=== PATIENT | male | born 1940 | race Caucasian/White ===

== ENCOUNTER 2019-02-28 16:42 | Emergency (ER) | payer SELFPAY ==
[2019-02-28 16:55] VITALS: BP 159/82; PULSE 57; RESP 16; TEMP 36.5; O2SAT 99; BMI 27.9
--- NOTE | 2019-02-28 16:58 | PC.NURSE ---
Patient was the source patient of an exposure of needle stick at [facility]. Patient was asked to come to ER to provide blood for exposure panel. Patient has no complaints
--- NOTE | 2019-02-28 17:00 | PC.NURSE ---
Patient presents to the ER to provide blood work for a needle stick that took place at [facility]. 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 Patient has no complaints.
[2019-02-28 17:41] LABS: Alanine Aminotransferase 27 IU/L (21-72)
[2019-02-28 18:21] LABS: Hepatitis B Surface Antigen NEGATIVE s/c (NEGATIVE)
[2019-02-28 18:38] LABS: HIV 1 and 2 Antibody NEGATIVE (NEGATIVE)
--- NOTE | 2019-02-28 18:43 | ED_ITS ---
HPI - General Adult <JOCELIN May - Last Filed: 02/28/19 18:43> General Chief complaint: Blood/Body fluid exposure Stated complaint: BLOODWORK FOR NEEDLE STICK EARLIER Time Seen by Provider: 02/28/19 16:52 Source: patient Mode of arrival: ambulatory Limitations: no limitations History of Present Illness HPI narrative: The patient is a 78-year-old male with history of hypertension with a chief complaint of needing lab work. States he was at a clinic today, and a healthcare provider with stuck with a needle after drawing his blood. He states that the health care provider was exposed with blood. He denies any history of IV drug use, hepatitis or HIV. Related Data Home Medications Medication Instructions Recorded Confirmed aspirin 81 mg PO DAILY #0 04/25/11 cholecalciferol (vitamin D3) 1,000 unit PO DAILY #0 04/25/11 [Vitamin D3] amlodipine 10 mg PO DAILY 02/28/19 02/28/19 cyanocobalamin (vitamin B-12) See Rx Instructions .ROUTE .COMPLEX 02/28/19 02/28/19 doxycycline hyclate 50 mg PO DAILY 02/28/19 02/28/19 gabapentin 300 mg PO BEDTIME 02/28/19 02/28/19 insulin glargine [Basaglar KwikPen 02/28/19 U-100 Insulin] lisinopril 40 mg PO DAILY 02/28/19 02/28/19 metformin 1,000 mg PO BID 02/28/19 02/28/19 rosuvastatin 10 mg PO DAILY 02/28/19 02/28/19 sitagliptin [Januvia] 100 mg PO DAILY 02/28/19 02/28/19 Allergies Allergy/AdvReac Type Severity Reaction Status Date / Time none Allergy Unknown Uncoded 12/20/17 12:02 Review of Systems <JOCELIN May - Last Filed: 02/28/19 18:43> Review of Systems GENERAL: Denies chills, fatigue, malaise, fever, sweats. HEENT: Denies sinus pain, ear pain, sore throat, difficulty swallowing, dizziness. RESPIRATORY: Denies dyspnea, cough, wheezing, hemoptysis, sputum. CARDIOVASCULAR: Denies chest pain, palpitations, orthopnea, edema, GASTROINTESTINAL: Denies nausea, vomiting, abdominal pain, diarrhea, constipation, melena. : Denies dysuria, frequency, incontinence, hematuria, urinary retention. MUSCULOSKELETAL: denies weakness, joint pain, or bony pain SKIN: See HPI NEUROLOGIC: Denies weakness, headache, numbness, change in speech, confusion, seizures, incoordination. PSYCHIATRIC: No concerning psychosocial issues. 12 point review of systems is negative except for those stated above PFSH <JOCELIN May - Last Filed: 02/28/19 18:43> Social History Smoking Status: Never smoker Social History Smoking Status: Never smoker Exam <JOCELIN May - Last Filed: 02/28/19 18:43> Narrative Exam Narrative: GENERAL: This is a well-nourished, well-developed patient, in no acute distress HEAD: Atraumatic. Normocephalic. No temporal or scalp tenderness. EYES: Pupils equal round and reactive. Extraocular motions intact. No scleral icterus. No injection or drainage. ENT: Nose without bleeding. Airway patent RESPIRATORY: No cough. No increased respiratory effort. No accessory muscle use. EXTREMITIES: No clubbing, cyanosis, or edema. No joint tenderness, effusion, or edema noted. BACK: Nontender without deformity or crepitance. No flank tenderness. NEURO: AOx3. SKIN: No rash or erythema. Initial Vital Signs Initial Vital Signs: Vital Signs Temperature 97.7 F 02/28/19 16:55 Pulse Rate 57 L 02/28/19 16:55 Respiratory Rate 16 02/28/19 16:55 Blood Pressure 159/82 H 02/28/19 16:55 Pulse Oximetry 99 02/28/19 16:55 <Rhiannon Baker DO - Last Filed: 02/28/19 19:02> Initial Vital Signs Initial Vital Signs: Vital Signs Temperature 97.7 F 02/28/19 16:55 Pulse Rate 57 L 02/28/19 16:55 Respiratory Rate 16 02/28/19 16:55 Blood Pressure 159/82 H 02/28/19 16:55 Pulse Oximetry 99 02/28/19 16:55 Course <JOCELIN May - Last Filed: 02/28/19 18:43> Vital Signs - 8 hr 02/28/19 16:55 Temperature 97.7 F Pulse Rate 57 L Respiratory Rate 16 Blood Pressure 159/82 H Pulse Oximetry 99 <Rhiannon BakerDO - Last Filed: 02/28/19 19:02> Vital Signs - 8 hr 02/28/19 16:55 Temperature 97.7 F Pulse Rate 57 L Respiratory Rate 16 Blood Pressure 159/82 H Pulse Oximetry 99 Medical Decision Making <Rhiannon Reed LENGTH CONTROL TESTER-BC - Last Filed: 02/28/19 18:43> Lab Data Lab Results 02/28/19 02/28/19 Range/Units 17:24 17:24 ALT 27 (21-72) IU/L Hep Bs Antigen Negative (NEGATIVE) s/c HIV 1&2 Antibody Negative (NEGATIVE) MDM Narrative Medical decision making narrative: The patient is a 78-year-old male who presents requesting lab work as a healthcare provider was exposed to his blood. This occurred at a local clinic. An exposure panel was drawn. The patient requested to leave before his results came back. I am okay with this. I discussed following up with his PCP. Expressed appreciation for the patient being willing to come in to have lab work drawn. <Rhiannon TuckerDO magdaleno - Last Filed: 02/28/19 19:02> Lab Data Lab Results 02/28/19 02/28/19 Range/Units 17:24 17:24 ALT 27 (21-72) IU/L Hep Bs Antigen Negative (NEGATIVE) s/c HIV 1&2 Antibody Negative (NEGATIVE) Discharge Plan Departure Patient Disposition: Home Clinical Impression: Routine lab draw Discharge Date/Time: 02/28/19 17:40 Interventions: ED Discharge Assessment Last Done: 02/28/19 17:40 Instructions: DI for Accidental Exposure to Body Fluids Activity Restrictions/Additional Instructions: Thank you for coming in to get your blood work done today. Your blood work will be available by your PCP or medical records. Please feel free to come back to the emergency department for any acute concerns Prescriptions: No Action aspirin 81 MG tablet,delayed release (DR/EC) 81 mg PO DAILY Qty: 0 RF: 0 cholecalciferol (vitamin D3) [Vitamin D3] 1,000 unit Capsule 1,000 unit PO DAILY Qty: 0 RF: 0 doxycycline hyclate 50 mg capsule 50 mg PO DAILY RF: 0 amlodipine 10 mg tablet 10 mg PO DAILY RF: 0 cyanocobalamin (vitamin B-12) 1,000 mcg/mL solution See Rx Instructions .ROUTE .COMPLEX RF: 0 metformin 1,000 mg tablet 1,000 mg PO BID RF: 0 gabapentin 300 mg capsule 300 mg PO BEDTIME RF: 0 lisinopril 40 mg tablet 40 mg PO DAILY RF: 0 rosuvastatin 10 mg tablet 10 mg PO DAILY RF: 0 Januvia 100 mg tablet 100 mg PO DAILY RF: 0 Basaglar KwikPen U-100 Insulin 100 unit/mL (3 mL) insulin pen RF: 0 Referrals: Caity Wiseman MD [Primary Care Provider] - <Rhiannon Baker DO - Last Filed: 02/28/19 19:02> Cosign ED Attending Cosignature Attestation: I was immediately available in the department for consultation. This documentation has been reviewed and I agree with assessment and plan. Supervised by Rhiannon Baker DO
[2019-02-28 20:31] LABS: Hep C Virus Ab w/Reflex Quant NEGATIVE s/c (NEGATIVE)
[2019-03-02 17:23] LABS: Hepatitis B Surf Ab Qualitativ Reactive (Nonreactive)
== END 2019-02-28 17:40 | disposition home or self-care (01) ==
PROVIDERS: Emergency Provider Nurse Practitioner Family; Family Provider Internal Medicine; PCP Internal Medicine
DX: Z01.89 Encounter for other specified special examinations (principal)
CPT/HCPCS: 36415; 84460; 86703; 86706; 86803; 87340; 99282

== ENCOUNTER → 2019-04-09 11:04 | Outpatient (CLI) | payer MEDICARE, OTHER, SELFPAY ==
[2019-04-11 19:37] LABS: Intrinsic Factor Blocking Aby NEGATIVE
== END ==
PROVIDERS: PCP Internal Medicine; Visit Provider Internal Medicine
DX: E53.8 Deficiency of other specified B group vitamins (principal)
CPT/HCPCS: 36415; 86340

== ENCOUNTER → 2019-06-03 10:55 | Outpatient (CLI) | payer MEDICARE, OTHER, SELFPAY ==
[2019-06-03 13:39] LABS: Alanine Aminotransferase 33 IU/L (21-72); Albumin 4.7 g/dL (3.5-5.0); Albumin Globulin Ratio 1.6 (1.0-2.8); Alkaline Phosphatase 54 U/L (38-126); Aspartate Aminotransferase 38 IU/L (17-59); BUN Creatinine Ratio 21.4 (6-22); Bilirubin Total 1.5 mg/dL (0.2-1.3); Blood Urea Nitrogen 30 mg/dL (9-20); Calcium 10.9 mg/dL (8.4-10.2); Carbon Dioxide 25 mmol/L (22-32); Chloride 103 mmol/L (98-107); Cholesterol 121 mg/dL (140-199); Estimated Glomerular Filt Rate 48.8 mL/min (>60); Glucose 147 mg/dL (80-110); HDL Cholesterol 48 mg/dL (40-60); HEMOLYSIS < 15 (0-50); LDL Cholesterol Calculated 21 mg/dL (<100); Sodium 142 mmol/L (137-145); Total Protein 7.7 g/dL (6.3-8.2); Triglycerides 259 mg/dL (35-150)
[2019-06-03 13:48] LABS: Potassium 5.4 mmol/L (3.4-5.1)
== END ==
PROVIDERS: PCP Internal Medicine; Visit Provider Internal Medicine
DX: E11.9 Type 2 diabetes mellitus without complications (principal); I10 Essential (primary) hypertension; E78.2 Mixed hyperlipidemia
CPT/HCPCS: 36415; 80053; 80061

== ENCOUNTER → 2019-06-04 14:33 | Outpatient (CLI) | payer MEDICARE, OTHER, SELFPAY ==
--- NOTE | 2019-06-04 | DI.RAD.S_ITS ---
PROCEDURE: XR CHEST 2V INDICATIONS: HYPERCALCEMIA/KNOWN MGUS/R/O PULMONARY PATHOLOGY TECHNIQUE: 2 views of the chest were acquired. COMPARISON: None. FINDINGS: Surgical changes and devices: None. Lungs and pleura: Lungs are clear. Nodular densities in lower lobes, one on each side, are compatible with nipple shadows. No pleural effusions or pneumothorax. Mediastinum: Mediastinal contours are normal. Heart size is normal. Bones and chest wall: No suspicious bony abnormalities. Soft tissues appear unremarkable. IMPRESSION: No acute cardiopulmonary disease. Dictated by: Eva Palm M.D. on 06/04/2019 at 17:13 Approved by: Eva Palm M.D. on 06/04/2019 at 17:14
[2019-06-04 15:45] LABS: Add Manual Diff / Slide Review NO; Basophils Absolute Auto 0 /uL (0-100); Basophils Percent Auto 0.4 % (0-2); Eosinophils Absolute Auto 200 /uL (0-450); Eosinophils Percent Auto 2.1 % (2-4); Hematocrit 40.6 % (41-53); Hemoglobin 13.6 g/dL (13.5-17.5); Lymphocytes Absolute Auto 1200 /uL (1100-4500); Lymphocytes Percent Auto 15.7 % (25-40); Mean Corpuscular HGB Conc 33.4 % (30-36); Mean Corpuscular Hemoglobin 27.7 PG (26-34); Monocytes Absolute Auto 800 /uL (0-900); Monocytes Percent Auto 9.9 % (3-14); Neutrophils Absolute Auto 5700 /uL (1500-7000); Neutrophils Percent Auto 71.9 % (50-75); Platelet Count 210 X10^3/uL (150-400); Red Blood Cell Count 4.89 X10^6/uL (4.5-5.9); Red Cell Distribution Width 14.5 % (11.6-14.8); White Blood Cell Count 7.9 X10^3/uL (4.5-11.0)
[2019-06-04 16:23] LABS: Albumin 4.7 g/dL (3.5-5.0); Blood Urea Nitrogen 28 mg/dL (9-20); Calcium 10.5 mg/dL (8.4-10.2); Carbon Dioxide 24 mmol/L (22-32); Chloride 105 mmol/L (98-107); Estimated Glomerular Filt Rate 48.8 mL/min (>60); Glucose 119 mg/dL (80-110); HEMOLYSIS < 15 (0-50); Magnesium 1.7 mg/dL (1.6-2.3); Potassium 4.7 mmol/L (3.4-5.1); Sodium 141 mmol/L (137-145)
[2019-06-06 13:54] LABS: Free Kappa Light Chain 63.4 mg/L (3.3-19.4); Free Kappa/ Lambda Ratio 2.66 (0.26-1.65); Free Lambda 23.8 mg/L (5.7-26.3)
[2019-06-06 15:19] LABS: Ionized Calcium 5.4 mg/dL (4.8-5.6)
[2019-06-07 23:19] LABS: Albumin 4.3 g/dL (3.8-4.8); Alpha 1 Globulin 0.3 g/dL (0.2-0.3); Alpha 2 Globulin 0.9 g/dL (0.5-0.9); Beta 1 Globulin 0.5 g/dL (0.4-0.6); Gamma Globulin 0.9 g/dL (0.8-1.7); Protein, Total 7.3 g/dL (6.1-8.1)
== END ==
PROVIDERS: Visit Provider Internal Medicine
DX: N18.3 Chronic kidney disease, stage 3 (moderate) (principal)
CPT/HCPCS: 36415; 71046; 80048; 82040; 82330; 83735; 83883; 84155; 84165; 85025

== ENCOUNTER → 2019-06-07 09:49 | Outpatient (CLI) | payer MEDICARE, OTHER, SELFPAY ==
[2019-06-09 15:40] LABS: Calcium 24 Hour Urine 84 mg/day (100-300); Calcium Urine Random 5.1; Collection Time Urine 24 Hours; Total Volume Urine 1650 mL
== END ==
PROVIDERS: Visit Provider Internal Medicine
DX: E83.52 Hypercalcemia (principal)
CPT/HCPCS: 82340

== ENCOUNTER → 2020-01-03 10:08 | Outpatient (CLI) | payer MEDICARE, SELFPAY ==
[2020-01-03 11:58] LABS: Add Manual Diff / Slide Review NO; Basophils Absolute Auto 0 /uL (0-100); Basophils Percent Auto 0.7 % (0-2); Eosinophils Absolute Auto 200 /uL (0-450); Eosinophils Percent Auto 3.4 % (2-4); Hematocrit 40.1 % (41-53); Hemoglobin 13.5 g/dL (13.5-17.5); Lymphocytes Absolute Auto 1100 /uL (1100-4500); Lymphocytes Percent Auto 15.4 % (25-40); Mean Corpuscular HGB Conc 33.7 % (30-36); Mean Corpuscular Hemoglobin 28.3 PG (26-34); Mean Corpuscular Volume 83.7 fL (80-100); Monocytes Absolute Auto 800 /uL (0-900); Monocytes Percent Auto 10.7 % (3-14); Neutrophils Absolute Auto 5000 /uL (1500-7000); Neutrophils Percent Auto 69.8 % (50-75); Platelet Count 220 X10^3/uL (150-400); Red Blood Cell Count 4.79 X10^6/uL (4.5-5.9); Red Cell Distribution Width 14.5 % (11.6-14.8); White Blood Cell Count 7.2 X10^3/uL (4.5-11.0)
[2020-01-03 12:05] LABS: Hemoglobin A1C% w Est Avg Glu 6.7 % (4.0-6.0)
[2020-01-03 12:21] LABS: Alanine Aminotransferase 37 IU/L (<50); Albumin Globulin Ratio 1.5 (1.0-2.8); Alkaline Phosphatase 56 U/L (38-126); Aspartate Aminotransferase 42 IU/L (17-59); BUN Creatinine Ratio 15.2 (6-22); Bilirubin Total 1.8 mg/dL (0.2-1.3); Blood Urea Nitrogen 26 mg/dL (9-20); Calcium 10.6 mg/dL (8.4-10.2); Carbon Dioxide 23 mmol/L (22-32); Chloride 105 mmol/L (98-107); Cholesterol 150 mg/dL (140-199); Estimated Glomerular Filt Rate 38.7 mL/min (>60); Globulin 3.4 g/dL (1.7-4.1); Glucose 192 mg/dL (80-110); HDL Cholesterol 45 mg/dL (40-60); HEMOLYSIS < 15 (0-50); LDL Cholesterol Calculated 50 mg/dL (<100); Potassium 4.7 mmol/L (3.4-5.1); Sodium 141 mmol/L (137-145); Total Protein 8.4 g/dL (6.3-8.2); Triglycerides 273 mg/dL (35-150)
[2020-01-03 13:05] LABS: Vitamin B12 467 pg/mL (239-931)
[2020-01-03 16:53] LABS: Creatinine Urine Random 255.6 mg/dL
[2020-01-03 17:40] LABS: Microalbumi Creatinin Ratio Ur 166.2 ug/mg CR (<30); Microalbumin Urine Random 42.5 mg/dL (0-1.6)
[2020-01-04 08:38] LABS: Parathyroid Hormone Int 30 pg/mL (15-65)
[2020-01-04 15:12] LABS: Ionized Calcium 5.3 mg/dL (4.5-5.6)
[2020-01-06 09:08] LABS: Free Kappa Light Chain 659.33 mg/L (0.63-113.79); Free Kappa/ Lambda Ratio 10.29 (1.03-31.76); Free Lambda 64.05 mg/L (0.47-11.77)
[2020-01-06 14:07] LABS: Albumin 4.2 g/dL (2.9-4.4); Alpha-1-Globulin 0.1 g/dL (0.0-0.4); Alpha-2-Globulin 0.9 g/dL (0.4-1.0); Gamma Globulin 0.8 g/dL (0.4-1.8); Globulin Total 2.9 g/dL (2.2-3.9); Protein, Total 7.1 g/dL (6.0-8.5)
== END ==
PROVIDERS: Referring Provider Internal Medicine; Visit Provider Internal Medicine
DX: D47.2 Monoclonal gammopathy (principal); E53.8 Deficiency of other specified B group vitamins; E11.42 Type 2 diabetes mellitus with diabetic polyneuropathy; E78.5 Hyperlipidemia, unspecified; E83.52 Hypercalcemia
CPT/HCPCS: 36415; 80053; 80061; 82043; 82330; 82570; 82607; 83036; 83883; 83970; 84155; 84165; 85025

== ENCOUNTER → 2020-01-24 19:57 | Outpatient (ROUT) | payer MEDICARE, SELFPAY | PROVIDERS: Visit Provider Internal Medicine | DX: R39.9 Unspecified symptoms and signs involving the genitourinary system (principal) | CPT/HCPCS: 87086 ==

== ENCOUNTER → 2020-03-16 14:15 | Outpatient (CLI) | payer MEDICARE, SELFPAY ==
[2020-03-16 14:30] LABS: Bacteria Urine None Seen; RBC Urine None Seen (0-5/HPF); WBC Urine None Seen (0-5/HPF)
[2020-03-16 14:46] LABS: Appearance Urine UA CLEAR; Bilirubin Urine UA NEGATIVE (NEGATIVE); Color Urine UA YELLOW; Glucose Urine UA NEGATIVE (Negative); Hematocrit 39.5 % (41-53); Hemoglobin 12.9 g/dL (13.5-17.5); Ketones Urine UA NEGATIVE (NEGATIVE); Leukocyte Esterase Urine UA NEGATIVE (NEGATIVE); Mean Corpuscular HGB Conc 32.6 % (30-36); Mean Corpuscular Hemoglobin 27.1 PG (26-34); Mean Corpuscular Volume 83.1 fL (80-100); Nitrite Urine UA NEGATIVE (Negative); Occult Blood Urine UA TRACE-LYSED (Negative); Platelet Count 212 X10^3/uL (150-400); Protein Urine UA 2+ (Negative); Red Blood Cell Count 4.76 X10^6/uL (4.5-5.9); Red Cell Distribution Width 15.1 % (11.6-14.8); Specific Gravity Urine UA >=1.030 (1.000-1.035); Urobilinogen Urine UA 0.2 E.U./dL (0.2)
[2020-03-16 14:51] LABS: Culture Indicated Urine Cult Not Indicated; Urine Comments Microscopic Normal
[2020-03-16 15:29] LABS: BUN Creatinine Ratio 16.3 (6-22); Blood Urea Nitrogen 26 mg/dL (9-20); Calcium 10.5 mg/dL (8.4-10.2); Carbon Dioxide 21 mmol/L (22-32); Chloride 108 mmol/L (98-107); Estimated Glomerular Filt Rate 41.8 mL/min (>60); Glucose 93 mg/dL (80-110); HEMOLYSIS < 15 (0-50); Potassium 4.4 mmol/L (3.4-5.1); Sodium 140 mmol/L (137-145)
[2020-03-16 15:33] LABS: Creatinine Urine Random 175.4 mg/dL; Protein (Total) Urine Random 60 mg/dL (0-12); Protein Creatinine Ratio Urine 0.34 GRAM/24H
[2020-03-17 03:36] LABS: Complement C3 152 mg/dL (82-167)
[2020-03-17 10:08] LABS: Parathyroid Hormone Int 35 pg/mL (15-65)
[2020-03-17 18:10] LABS: DNA (DS) Antibody 1 IU/mL (0-9)
[2020-03-18 13:09] LABS: Cytoplasmic C-ANCA <1:20 titer (Neg:<1:20); Perinuclear P-ANCA <1:20 titer (Neg:<1:20)
[2020-03-19 20:09] LABS: ANA Screen, IFA Negative (.)
== END ==
PROVIDERS: PCP Internal Medicine; Referring Provider Student in an Organized Health Care Education/Training Program; Visit Provider Student in an Organized Health Care Education/Training Program
DX: L93.2 Other local lupus erythematosus (principal); M31.30 Wegener's granulomatosis without renal involvement; M32.10 Systemic lupus erythematosus, organ or system involvement unspecified; N00.9 Acute nephritic syndrome with unspecified morphologic changes; N05.9 Unspecified nephritic syndrome with unspecified morphologic changes; D89.89 Other specified disorders involving the immune mechanism, not elsewhere classified; D70.9 Neutropenia, unspecified; D63.1 Anemia in chronic kidney disease; N25.81 Secondary hyperparathyroidism of renal origin; N30.00 Acute cystitis without hematuria; R80.9 Proteinuria, unspecified
CPT/HCPCS: 36415; 80048; 81001; 82570; 83516; 83970; 84156; 85027; 86038; 86160; 86225

== ENCOUNTER → 2020-03-23 11:34 | Outpatient (CLI) | payer MEDICARE, SELFPAY ==
--- NOTE | 2020-03-23 | DI.US.S_ITS ---
PROCEDURE: US RENAL COMPLETE INDICATIONS: CHRONIC KIDNEY DISEASE, STAGE THREE TECHNIQUE: Real-time scanning was performed of the kidneys and bladder, with image documentation. COMPARISON: [facility], CT, ABDOMEN/PELVIS WITH CONTRAST, 12/29/2014, 10:55. FINDINGS: Kidneys: Kidneys are normal in size. Right kidney measures 12.2 cm long; left kidney measures 12.0 cm long. Right renal cortical thickness is 1.6 cm; left renal cortical thickness is 1.1 cm. Renal cortical echotexture is mildly increased bilaterally. No hydronephrosis or nephrolithiasis. No suspicious solid mass lesions. Bladder: Pre-void bladder volume is 31 mL. Post-void residual is 9 mL. Pre-void images demonstrate no intraluminal masses or stones. On pre-void images, right ureteral jets are noted with color Doppler interrogation. (Of note, ureteral jets may not be detectable in up to 25% of cases due to insufficient differences in specific gravity between ureteral and bladder urine). Prominent prostate. Miscellaneous: No free pelvic fluid. IMPRESSION: Mild increase in renal cortical echogenicity bilaterally; otherwise normal appearance of the kidneys. Dictated by: Sarbjit GIANG Interpreted: Arthur Cash MD on 03/23/2020 at 12:44 Approved by: Arthur Cash M.D. on 03/23/2020 at 13:41
== END ==
PROVIDERS: PCP Internal Medicine; Referring Provider Student in an Organized Health Care Education/Training Program; Visit Provider Student in an Organized Health Care Education/Training Program
DX: N18.3 Chronic kidney disease, stage 3 (moderate) (principal)
CPT/HCPCS: 76770

== ENCOUNTER → 2020-11-09 09:20 | Oncology outpatient (ONC) | payer MEDICARE, SELFPAY ==
[2020-04-13 14:37] VITALS: BP 128/73; PULSE 56; RESP 18; TEMP 36.4; O2SAT 99
--- NOTE | 2020-04-13 14:48 | P.CONONC_ITS ---
History of Present Illness - Data of Consult Patient: new to practice Consult date: 04/13/20 Requesting Physician: Caity Wiseman MD Primary Care Provider: Caity Wiseman MD - Consult Narrative Reason for consult: MGUS Narrative: Osman Palacios is a 79 year old male with medical problems most notable for type 2 diabetes, hypertension, and CKD. He was referred to [facility] for evaluation of MGUS. On 01/03/2020, labs showed WBC 7.2, HGB 13.5, HCT 40.1, PLT 220, Cr 1.71, Calcium 10.6, total protein 8.4, SPEP did not show any M-spike, but light chain analysis showed serum free kappa light chain 859.33 mg/L, free lambda light chains 64.05 mg/L, ratio 10.29. He said he has no pain problems. and I feel fine'. His energy is 'well'. He has good appetite. CC: Omid Lewis MD Patient reports pain?: No Home Medications and Allergies Home Medications Medication Instructions Recorded Confirmed Type aspirin 81 mg PO DAILY #0 04/25/11 04/13/20 History cholecalciferol (vitamin D3) 1,000 unit PO DAILY #0 04/25/11 04/13/20 History [Vitamin D3] amlodipine 10 mg PO DAILY 02/28/19 04/13/20 History doxycycline hyclate 50 mg PO DAILY 02/28/19 04/13/20 History gabapentin 300 mg PO BEDTIME 02/28/19 04/13/20 History insulin glargine [Basaglar KwikPen 02/28/19 History U-100 Insulin] lisinopril 20 mg PO DAILY 02/28/19 04/13/20 History metformin 1,000 mg PO BID 02/28/19 04/13/20 History rosuvastatin 10 mg PO DAILY 02/28/19 04/13/20 History sitagliptin [Januvia] 100 mg PO DAILY 02/28/19 04/13/20 History Allergies Allergy/AdvReac Type Severity Reaction Status Date / Time none Allergy Unknown Uncoded 12/20/17 12:02 Medical History - Medical, Surgical, Family History Medical History: Medical History (Last Updated 04/13/20 @ 14:59 by Omid Lewis MD) Diabetes Hypertension Surgical History: Surgical History (Last Updated 04/13/20 @ 15:00 by Omid Lewis MD) H/O hernia repair History of cholecystectomy History of vasectomy - Social History Smoking Status: Former smoker (smoked in his 20s. He has stopped.) Substance Use Type: does not use Review of Systems - Patient Self-Reported Symptoms SR ears, nose, mouth, throat issues: Ears ringing All systems PM: reviewed and no additional remarkable complaints except as stated Exam Vital signs: Last Vital Signs Temp 97.6 F 04/13/20 14:37 Pulse 56 L 04/13/20 14:37 Resp 18 04/13/20 14:37 BP 128/73 04/13/20 14:37 Pulse Ox 99 04/13/20 14:37 - Constitutional positive no acute distress, positive obese, positive cooperative - Routine HEENT Exam Head: Present: normocephalic, atraumatic Eye: Present: EOMI, PERRL, normal accommodation. Absent: conjunctival icterus - Routine Neck Exam Present: supple. Absent: lymphadenopathy, thyromegaly - Routine Chest/Breast/Axilla Exam Axillae: Absent: lymphadenopathy - Routine Respiratory Exam Present: Clear to auscultation bilaterally. Absent: accessory muscle use, rales, wheezes - Routine Cardiovascular Exam Present: RRR, S1, S2. Absent: murmur, gallop, rubs - Routine Abdominal Exam Present: soft. Absent: tenderness, distended, organomegaly - Routine Extremities Exam Absent: edema - Routine Neurological Exam Present: alert, oriented X3, CN II-XII intact. Absent: sensory deficit, motor deficit - Routine Psychiatric Exam Present: normal affect Results - Labs Laboratory Last Values WBC 7.6 X10^3/uL (4.5-11.0) 04/13/20 15:28 RBC 4.87 X10^6/uL (4.5-5.9) 04/13/20 15:28 Hgb 13.3 g/dL (13.5-17.5) L 04/13/20 15: Hct 40.2 % (41-53) L 04/13/20 15:28 MCV 82.5 fL (80-100) 04/13/20 15:28 MCH 27.3 PG (26-34) 04/13/20 15: MCHC 33.1 % (30-36) 04/13/20 15:28 RDW 14.7 % (11.6-14.8) 04/13/20 15:28 Plt Count 212 X10^3/uL (150-400) 04/13/20 15:28 Neut % (Auto) 73.3 % (50-75) 04/13/20 15:28 Lymph % (Auto) 14.9 % (25-40) L 04/13/20 15:28 [place] % (Auto) 8.5 % (3-14) 04/13/20 15:28 Eos % (Auto) 2.7 % (2-4) 04/13/20 15:28 Baso % (Auto) 0.6 % (0-2) 04/13/20 15:28 Neut # (Auto) 5600 /uL (6359-3784) 04/13/20 15: Lymph # (Auto) 1100 /uL (0954-6938) 04/13/20 15:28 [place] # (Auto) 700 /uL (0-900) 04/13/20 15:28 Eos # (Auto) 200 /uL (0-450) 04/13/20 15:28 Baso # (Auto) 0 /uL (0-100) 04/13/20 15:28 Sodium 140 mmol/L (137-145) 04/13/20 15:28 Potassium 4.9 mmol/L (3.4-5.1) 04/13/20 15:28 Chloride 103 mmol/L (98-107) 04/13/20 15:28 Carbon Dioxide 24 mmol/L (22-32) 04/13/20 15:28 BUN 23 mg/dL (9-20) H 04/13/20 15:28 Creatinine 1.78 mg/dL (0.66-1.25) H 04/13/20 15:28 Estimated GFR 37.0 mL/min (>60) L 04/13/20 15:28 BUN/Creatinine Ratio 12.9 (6-22) 04/13/20 15:28 Glucose 107 mg/dL (80-110) 04/13/20 15:28 Calcium 10.6 mg/dL (8.4-10.2) H 04/13/20 15:28 Total Bilirubin 1.2 mg/dL (0.2-1.3) 04/13/20 15:28 AST 45 IU/L (17-59) 04/13/20 15:28 ALT 35 IU/L (<50) 04/13/20 15:28 Alkaline Phosphatase 60 U/L (38-126) 04/13/20 15:28 Lactate Dehydrogenase 338 U/L (313-618) 04/13/20 15:28 Total Protein 8.3 g/dL (6.3-8.2) H 04/13/20 15:28 Albumin 5.1 g/dL (3.5-5.0) H 04/13/20 15:28 Globulin 3.2 g/dL (1.7-4.1) 04/13/20 15:28 Albumin/Globulin Ratio 1.6 (1.0-2.8) 04/13/20 15:28 - Imaging Additional studies: Procedures Colonoscopy (04/06/11) Other and open repair of indirect inguinal hernia with graft or prosthesis (04/28/11) Assessment and Plan (1) MGUS (monoclonal gammopathy of unknown significance) Overview: 79-year-old male was found to have elevated serum free kappa light chain in December 2019. He was also found to have chronic kidney disease and hypercalcemia. He has history of diabetes and hypertension. Assessment: Patient is extremely hard on hearing. I tried to explain to him that the elevated serum free kappa light chain suggests possible monoclonal gammopathy of unknown significance or multiple myeloma. I will obtain blood tests to repeat and confirm the presence of serum free light chain and then possibly bone marrow aspiration and biopsy if it is still elevated. Plan: CBC, CMP, LDH, B2M, SPEP, IFIX, SFLC RTC in 2 weeks for follow up visit.
[2020-04-13 15:42] LABS: Add Manual Diff / Slide Review NO; Basophils Absolute Auto 0 /uL (0-100); Basophils Percent Auto 0.6 % (0-2); Eosinophils Absolute Auto 200 /uL (0-450); Eosinophils Percent Auto 2.7 % (2-4); Hematocrit 40.2 % (41-53); Hemoglobin 13.3 g/dL (13.5-17.5); Lymphocytes Absolute Auto 1100 /uL (1100-4500); Lymphocytes Percent Auto 14.9 % (25-40); Mean Corpuscular HGB Conc 33.1 % (30-36); Mean Corpuscular Hemoglobin 27.3 PG (26-34); Mean Corpuscular Volume 82.5 fL (80-100); Monocytes Absolute Auto 700 /uL (0-900); Monocytes Percent Auto 8.5 % (3-14); Neutrophils Absolute Auto 5600 /uL (1500-7000); Neutrophils Percent Auto 73.3 % (50-75); Platelet Count 212 X10^3/uL (150-400); Red Blood Cell Count 4.87 X10^6/uL (4.5-5.9); Red Cell Distribution Width 14.7 % (11.6-14.8); White Blood Cell Count 7.6 X10^3/uL (4.5-11.0)
[2020-04-13 16:02] LABS: Alanine Aminotransferase 35 IU/L (<50); Albumin 5.1 g/dL (3.5-5.0); Albumin Globulin Ratio 1.6 (1.0-2.8); Alkaline Phosphatase 60 U/L (38-126); Aspartate Aminotransferase 45 IU/L (17-59); BUN Creatinine Ratio 12.9 (6-22); Bilirubin Total 1.2 mg/dL (0.2-1.3); Blood Urea Nitrogen 23 mg/dL (9-20); Calcium 10.6 mg/dL (8.4-10.2); Carbon Dioxide 24 mmol/L (22-32); Chloride 103 mmol/L (98-107); Globulin 3.2 g/dL (1.7-4.1); Glucose 107 mg/dL (80-110); HEMOLYSIS 18 (0-50); Lactate Dehydrogenase 338 U/L (313-618); Potassium 4.9 mmol/L (3.4-5.1); Sodium 140 mmol/L (137-145); Total Protein 8.3 g/dL (6.3-8.2)
[2020-04-14 18:36] LABS: Free Kappa Lt Chains, Serum 70.5 mg/L (3.3-19.4); Free Lambda Lt Chains,Serum 27.5 mg/L (5.7-26.3)
[2020-04-15 13:10] LABS: Immunoglobulin A, Serum 327 mg/dL (61-437); Immunoglobulin G,Serum 863 mg/dL (603-1613); Immunoglobulin M, Serum 15 mg/dL (15-143)
[2020-04-15 14:12] LABS: Albumin 4.3 g/dL (2.9-4.4); Alpha-1-Globulin 0.2 g/dL (0.0-0.4); Alpha-2-Globulin 1.1 g/dL (0.4-1.0); Globulin Total 3.5 g/dL (2.2-3.9); Protein, Total 7.8 g/dL (6.0-8.5)
[2020-05-11 10:37] VITALS: PULSE 55; RESP 20; TEMP 36.6; O2SAT 100
--- NOTE | 2020-05-11 10:44 | P.PNONC_ITS ---
PN -Subjective Interval history: Osman Palacios is a 79 year old male with medical problems most notable for type 2 diabetes, hypertension, and CKD. He was referred to [facility] [place] for evaluation of MGUS. On 01/03/2020, labs showed WBC 7.2, HGB 13.5, HCT 40.1, PLT 220, Cr 1.71, Calcium 10.6, total protein 8.4, SPEP did not show any M-spike, but light chain analysis showed serum free kappa light chain 859.33 mg/L, free lambda light chains 64.05 mg/L, ratio 10.29. He said he has no pain problems. and I feel fine'. His energy is 'well'. He has good appetite. No new signs or symptoms. He is here for scheduled follow up visit. - Patient Self-Reported Symptoms SR ears, nose, mouth, throat issues: Ears ringing - Additional ROS All systems PM: reviewed and no additional remarkable complaints except as stated Home Medications and Allergies Home Medications Medication Instructions Recorded Confirmed Type aspirin 81 mg PO DAILY #0 04/25/11 04/13/20 History cholecalciferol (vitamin D3) 1,000 unit PO DAILY #0 04/25/11 04/13/20 History [Vitamin D3] amlodipine 10 mg PO DAILY 02/28/19 04/13/20 History doxycycline hyclate 50 mg PO DAILY 02/28/19 04/13/20 History gabapentin 300 mg PO BEDTIME 02/28/19 04/13/20 History insulin glargine [Basaglar KwikPen 02/28/19 History U-100 Insulin] lisinopril 20 mg PO DAILY 02/28/19 04/13/20 History metformin 1,000 mg PO BID 02/28/19 04/13/20 History rosuvastatin 10 mg PO DAILY 02/28/19 04/13/20 History sitagliptin [Januvia] 100 mg PO DAILY 02/28/19 04/13/20 History isosorbide mononitrate 30 mg PO DAILY 04/14/20 04/14/20 History Allergies Allergy/AdvReac Type Severity Reaction Status Date / Time none Allergy Unknown Uncoded 12/20/17 12:02 Exam Vital signs: Vital Signs Temp Pulse Resp Pulse Ox 05/11/20 10:37 98 F 55 L 20 100 Intake and Output 05/10/20 05/11/20 05/11/20 23:59 07:59 15:59 Other: Weight 92 kg Patient Weight 05/11/20 23:59 Weight 92 kg Results - Labs Laboratory Last Values WBC 7.6 X10^3/uL (4.5-11.0) 04/13/20 15: RBC 4.87 X10^6/uL (4.5-5.9) 04/13/20 15:28 Hgb 13.3 g/dL (13.5-17.5) L 04/13/20 15:28 Hct 40.2 % (41-53) L 04/13/20 15:28 MCV 82.5 fL (80-100) 04/13/20 15: MCH 27.3 PG (26-34) 04/13/20 15: MCHC 33.1 % (30-36) 04/13/20: RDW 14.7 % (11.6-14.8) 04/13/20 15:28 Plt Count 212 X10^3/uL (150-400) 04/13/20 15:28 Neut % (Auto) 73.3 % (50-75) 04/13/20 15:28 Lymph % (Auto) 14.9 % (25-40) L 04/13/20 15:28 [place] % (Auto) 8.5 % (3-14) 04/13/20 15:28 Eos % (Auto) 2.7 % (2-4) 04/13/20:28 Baso % (Auto) 0.6 % (0-2) 04/13/20 15:28 Neut # (Auto) 5600 /uL (0271-6242) 04/13/20 15:28 Lymph # (Auto) 1100 /uL (6983-0872) 04/13/20 15:28 [place] # (Auto) 700 /uL (0-900) 04/13/20 15:28 Eos # (Auto) 200 /uL (0-450) 04/13/20 15:28 Baso # (Auto) 0 /uL (0-100) 04/13/20 15:28 Sodium 140 mmol/L (137-145) 04/13/20 15:28 Potassium 4.9 mmol/L (3.4-5.1) 04/13/20 15:28 Chloride 103 mmol/L (98-107) 04/13/20 15:28 Carbon Dioxide 24 mmol/L (22-32) 04/13/20 15:28 BUN 23 mg/dL (9-20) H 04/13/20 15:28 Creatinine 1.78 mg/dL (0.66-1.25) H 04/13/20 15:28 Estimated GFR 37.0 mL/min (>60) L 04/13/20 15:28 BUN/Creatinine Ratio 12.9 (6-22) 04/13/20 15:28 Glucose 107 mg/dL (80-110) 04/13/20 15:28 Calcium 10.6 mg/dL (8.4-10.2) H 04/13/20 15:28 Total Bilirubin 1.2 mg/dL (0.2-1.3) 04/13/20 15:28 AST 45 IU/L (17-59) 04/13/20 15:28 ALT 35 IU/L (<50) 04/13/20 15:28 Alkaline Phosphatase 60 U/L (38-126) 04/13/20 15:28 Lactate Dehydrogenase 338 U/L (313-618) 04/13/20 15:28 Total Protein 7.8 g/dL (6.0-8.5) 04/13/20 15:28 Total Protein 8.3 g/dL (6.3-8.2) H 04/13/20 15:28 Albumin 4.3 g/dL (2.9-4.4) 04/13/20 15:28 Albumin 5.1 g/dL (3.5-5.0) H 04/13/20 15:28 Globulin 3.2 g/dL (1.7-4.1) 04/13/20 15:28 Albumin/Globulin Ratio 1.2 (0.7-1.7) 04/13/20 15:28 Albumin/Globulin Ratio 1.6 (1.0-2.8) 04/13/20 15:28 Eecfb-3-Rcmycujqr 0.2 g/dL (0.0-0.4) 04/13/20 15:28 Utbii-1-Eklpurczx 1.1 g/dL (0.4-1.0) H 04/13/20 15:28 Beta Globulins 1.2 g/dL (0.7-1.3) 04/13/20 15:28 Cdyc-3-Mwcqovrozkvxi 3.0 mg/L (0.6-2.4) H 04/13/20 15:28 Gamma Globulins 1.0 g/dL (0.4-1.8) 04/13/20 15:28 Gamma Glob/Tot Protein 3.5 g/dL (2.2-3.9) 04/13/20 15:28 M-[place] Not observed g/dL (Not Observed) 04/13/20 15:28 Serum IgA 327 mg/dL (61-437) 04/13/20 15:28 Serum IgG 863 mg/dL (603-1613) 04/13/20 15:28 Serum IgM 15 mg/dL (15-143) 04/13/20 15:28 MARIA R Interpretation Comment (.) 04/13/20 15:28 Free [place] Light Chains 70.5 mg/L (3.3-19.4) H 04/13/20 15:28 Free Lambda Light Chain 27.5 mg/L (5.7-26.3) H 04/13/20 15:28 Fr Lambda/Wolf Trap Ratio 2.56 (0.26-1.65) H 04/13/20 15:28 Ref Lab Notation Comment (.) 04/13/20 15:28 - Imaging Additional studies: Procedures Colonoscopy (04/06/11) Other and open repair of indirect inguinal hernia with graft or prosthesis (04/28/11) Assessment and Plan (1) MGUS (monoclonal gammopathy of unknown significance) Overview: 79-year-old male was found to have elevated serum free kappa light chain in December 2019. He was also found to have chronic kidney disease and hypercalcemia. He has history of diabetes and hypertension. Assessment: I reviewed the lab test results with the patient. There is no monoclonal protein detected in his serum. In addition the serum free light chains are mildly elevated with serum free light chain ratio slightly above 2. I talked with him that I do not think that he has monoclonal gammopathy of unknown sig nificance or multiple myeloma. However I think we need to continue monitoring the changes of the serum free light chain. Plan: CBC, CMP, LDH, B2M, SPEP, IFIX, SFLC RTC in 6 months for follow up visit.
[2020-10-16 10:28] LABS: Add Manual Diff / Slide Review NO; Basophils Absolute Auto 100 /uL (0-100); Basophils Percent Auto 0.5 % (0-2); Eosinophils Absolute Auto 500 /uL (0-450); Eosinophils Percent Auto 4.7 % (2-4); Hematocrit 38.7 % (41-53); Hemoglobin 12.7 g/dL (13.5-17.5); Lymphocytes Absolute Auto 1200 /uL (1100-4500); Lymphocytes Percent Auto 11.7 % (25-40); Mean Corpuscular HGB Conc 32.9 % (30-36); Mean Corpuscular Hemoglobin 27.4 PG (26-34); Mean Corpuscular Volume 83.3 fL (80-100); Monocytes Absolute Auto 1000 /uL (0-900); Monocytes Percent Auto 9.5 % (3-14); Neutrophils Absolute Auto 7700 /uL (1500-7000); Neutrophils Percent Auto 73.6 % (50-75); Platelet Count 186 X10^3/uL (150-400); Red Blood Cell Count 4.64 X10^6/uL (4.5-5.9); White Blood Cell Count 10.4 X10^3/uL (4.5-11.0)
[2020-10-16 10:51] LABS: Alanine Aminotransferase 28 IU/L (<50); Albumin 4.5 g/dL (3.5-5.0); Albumin Globulin Ratio 1.5 (1.0-2.8); Alkaline Phosphatase 54 U/L (38-126); Aspartate Aminotransferase 35 IU/L (17-59); BUN Creatinine Ratio 14.5 (6-22); Bilirubin Total 1.6 mg/dL (0.2-1.3); Blood Urea Nitrogen 22 mg/dL (9-20); Calcium 9.9 mg/dL (8.4-10.2); Carbon Dioxide 25 mmol/L (22-32); Chloride 107 mmol/L (98-107); Estimated Glomerular Filt Rate 44.2 mL/min (>60); Glucose 163 mg/dL (80-110); HEMOLYSIS < 15 (0-50); Lactate Dehydrogenase 294 U/L (313-618); Potassium 4.4 mmol/L (3.4-5.1); Sodium 140 mmol/L (137-145); Total Protein 7.5 g/dL (6.3-8.2)
[2020-10-17 15:36] LABS: Free Lambda Lt Chains,Serum 29.4 mg/L (5.7-26.3)
[2020-10-19 01:06] LABS: Beta-2-Microglobulin 2.6 mg/L (0.6-2.4)
[2020-10-19 15:27] LABS: Immunoglobulin A, Serum 304 mg/dL (61-437); Immunoglobulin G,Serum 767 mg/dL (603-1613); Immunoglobulin M, Serum 14 mg/dL (15-143)
[2020-10-19 16:27] LABS: Alpha-1-Globulin 0.2 g/dL (0.0-0.4); Alpha-2-Globulin 0.9 g/dL (0.4-1.0); Gamma Globulin 0.7 g/dL (0.4-1.8); Globulin Total 2.9 g/dL (2.2-3.9); Protein, Total 6.9 g/dL (6.0-8.5)
--- NOTE | 2020-11-09 10:10 | P.PNONC_ITS ---
PN -Subjective Interval history: Osman Palacios is a 80 year old male with medical problems most notable for type 2 diabetes, hypertension, and CKD. He is now being followed here for MGUS. On 01/03/2020, labs showed WBC 7.2, HGB 13.5, HCT 40.1, PLT 220, Cr 1.71, Calcium 10.6, total protein 8.4, SPEP did not show any M-spike, but light chain analysis showed serum free kappa light chain 859.33 mg/L, free lambda light chains 64.05 mg/L, ratio 10.29. He said he has no pain problems, and he said I feel fine'. No new signs or symptoms. He is here for scheduled follow up visit. - Patient Self-Reported Symptoms SR ears, nose, mouth, throat issues: Ears ringing - Additional ROS All systems PM: reviewed and no additional remarkable complaints except as stated Home Medications and Allergies Home Medications Medication Instructions Recorded Confirmed Type aspirin 81 mg PO DAILY #0 04/25/11 04/13/20 History cholecalciferol (vitamin D3) 1,000 unit PO DAILY #0 04/25/11 04/13/20 History [Vitamin D3] amlodipine 10 mg PO DAILY 02/28/19 04/13/20 History doxycycline hyclate 50 mg PO DAILY 02/28/19 04/13/20 History gabapentin 300 mg PO BEDTIME 02/28/19 04/13/20 History insulin glargine [Basaglar KwikPen 02/28/19 History U-100 Insulin] lisinopril 20 mg PO DAILY 02/28/19 04/13/20 History metformin 1,000 mg PO BID 02/28/19 04/13/20 History rosuvastatin 10 mg PO DAILY 02/28/19 04/13/20 History sitagliptin [Januvia] 100 mg PO DAILY 02/28/19 04/13/20 History isosorbide mononitrate 30 mg PO DAILY 04/14/20 04/14/20 History Allergies Allergy/AdvReac Type Severity Reaction Status Date / Time none Allergy Unknown Uncoded 12/20/17 12:02 Exam Vital signs: 11/09/20 21:53 Last Vital Signs Temp 96.2 F L 11/09/20 10:18 Pulse 53 L 11/09/20 10:18 Resp 16 11/09/20 10:18 BP 141/66 H 11/09/20 10:18 Pulse Ox 99 11/09/20 10:18 - Constitutional positive no acute distress, positive chronically ill appearing, positive cooperative - Routine HEENT Exam Head: Present: normocephalic, atraumatic Eye: Present: EOMI, PERRL, normal accommodation. Absent: conjunctival icterus - Routine Neck Exam Present: supple. Absent: lymphadenopathy, thyromegaly - Routine Chest/Breast/Axilla Exam Axillae: Absent: lymphadenopathy - Routine Respiratory Exam Present: Clear to auscultation bilaterally. Absent: wheezes - Routine Cardiovascular Exam Present: RRR, S1, S2. Absent: murmur, gallop, rubs - Routine Abdominal Exam Present: soft. Absent: tenderness, distended, organomegaly - Routine Extremities Exam Absent: edema - Routine Neurological Exam Present: alert, oriented X3, CN II-XII intact. Absent: sensory deficit, motor deficit - Routine Psychiatric Exam Present: normal affect Results - Labs Laboratory Last Values WBC 10.4 X10^3/uL (4.5-11.0) 10/16/20 10:13 RBC 4.64 X10^6/uL (4.5-5.9) 10/16/20 10:13 Hgb 12.7 g/dL (13.5-17.5) L 10/16/20 10:13 Hct 38.7 % (41-53) L 10/16/20 10:13 MCV 83.3 fL (80-100) 10/16/20 10:13 MCH 27.4 PG (26-34) 10/16/20 10:13 MCHC 32.9 % (30-36) 10/16/20 10:13 RDW 15.0 % (11.6-14.8) H 10/16/20 10:13 Plt Count 186 X10^3/uL (150-400) 10/16/20 10:13 Neut % (Auto) 73.6 % (50-75) 10/16/20 10:13 Lymph % (Auto) 11.7 % (25-40) L 10/16/20 10:13 [place] % (Auto) 9.5 % (3-14) 10/16/20 10:13 Eos % (Auto) 4.7 % (2-4) H 10/16/20 10:13 Baso % (Auto) 0.5 % (0-2) 10/16/20 10:13 Neut # (Auto) 7700 /uL (3288-5625) H 10/16/20 10:13 Lymph # (Auto) 1200 /uL (1522-0671) 10/16/20 10:13 [place] # (Auto) 1000 /uL (0-900) H 10/16/20 10:13 Eos # (Auto) 500 /uL (0-450) H 10/16/20 10:13 Baso # (Auto) 100 /uL (0-100) 10/16/20 10:13 Sodium 140 mmol/L (137-145) 10/16/20 10:13 Potassium 4.4 mmol/L (3.4-5.1) 10/16/20 10:13 Chloride 107 mmol/L (98-107) 10/16/20 10:13 Carbon Dioxide 25 mmol/L (22-32) 10/16/20 10:13 BUN 22 mg/dL (9-20) H 10/16/20 10:13 Creatinine 1.52 mg/dL (0.66-1.25) H 10/16/20 10:13 Estimated GFR 44.2 mL/min (>60) L 10/16/20 10:13 BUN/Creatinine Ratio 14.5 (6-22) 10/16/20 10:13 Glucose 163 mg/dL (80-110) H 10/16/20 10:13 Calcium 9.9 mg/dL (8.4-10.2) 10/16/20 10:13 Total Bilirubin 1.6 mg/dL (0.2-1.3) H 10/16/20 10:13 AST 35 IU/L (17-59) 10/16/20 10:13 ALT 28 IU/L (<50) 10/16/20 10:13 Alkaline Phosphatase 54 U/L (38-126) 10/16/20 10:13 Lactate Dehydrogenase 294 U/L (313-618) L 10/16/20 10:13 Total Protein 6.9 g/dL (6.0-8.5) 10/16/20 10:13 Total Protein 7.5 g/dL (6.3-8.2) 10/16/20 10:13 Albumin 4.0 g/dL (2.9-4.4) 10/16/20 10:13 Albumin 4.5 g/dL (3.5-5.0) 10/16/20 10:13 Globulin 3.0 g/dL (1.7-4.1) 10/16/20 10:13 Albumin/Globulin Ratio 1.4 (0.7-1.7) 10/16/20 10:13 Albumin/Globulin Ratio 1.5 (1.0-2.8) 10/16/20 10:13 Pifxe-7-Ovlhwftlx 0.2 g/dL (0.0-0.4) 10/16/20 10:13 Panuu-6-Tpziwihuj 0.9 g/dL (0.4-1.0) 10/16/20 10:13 Beta Globulins 1.0 g/dL (0.7-1.3) 10/16/20 10:13 Qbqd-6-Zywcsmqgaasgi 2.6 mg/L (0.6-2.4) H 10/16/20 10:13 Gamma Globulins 0.7 g/dL (0.4-1.8) 10/16/20 10:13 Gamma Glob/Tot Protein 2.9 g/dL (2.2-3.9) 10/16/20 10:13 M-[place] Not observed g/dL (Not Observed) 10/16/20 10:13 Serum IgA 304 mg/dL (61-437) 10/16/20 10:13 Serum IgG 767 mg/dL (603-1613) 10/16/20 10:13 Serum IgM 14 mg/dL (15-143) L 10/16/20 10:13 MARIA R Interpretation Comment (.) 10/16/20 10:13 Free [place] Light Chains 72.0 mg/L (3.3-19.4) H 10/16/20 10:13 Free Lambda Light Chain 29.4 mg/L (5.7-26.3) H 10/16/20 10:13 Fr Lambda/[place] Ratio 2.45 (0.26-1.65) H 10/16/20 10:13 Ref Lab Notation Comment (.) 10/16/20 10:13 - Imaging Additional studies: Procedures Colonoscopy (04/06/11) Other and open repair of indirect inguinal hernia with graft or prosthesis (04/28/11) Assessment and Plan (1) MGUS (monoclonal gammopathy of unknown significance) Overview: 80-year-old male was found to have elevated serum free kappa light chain in December 2019. He was also found to have chronic kidney disease and hypercalcemia. He has history of diabetes and hypertension. Assessment: Today I reviewed the lab results with the patient. The CBC is unremarkable. Serum calcium level has been normalized. The serum free light chain ratio is within the normal range. M-spike is not detected. Serum creatinine level is improving. I talked with the patient that I do not think he has any underlying hematological disorder. I would recommend that patient continue follow-up with his primary care provider. And I will see the patient on an as-needed basis. Plan: Follow up with PCP RTC PRN
[2020-11-09 10:18] VITALS: BP 141/66; PULSE 53; RESP 16; TEMP 35.7; O2SAT 99
== END ==
PROVIDERS: PCP Internal Medicine; Referring Provider Internal Medicine; Visit Provider Internal Medicine Hematology & Oncology
DX: D47.2 Monoclonal gammopathy (principal); E11.22 Type 2 diabetes mellitus with diabetic chronic kidney disease; I12.9 Hypertensive chronic kidney disease with stage 1 through stage 4 chronic kidney disease, or unspecified chronic kidney disease; N18.9 Chronic kidney disease, unspecified; Z79.4 Long term (current) use of insulin
CPT/HCPCS: 36415; 80053; 82232; 82784; 83615; 83883; 84155; 84165; 85025; 86334; 99204; 99214

== ENCOUNTER → 2021-01-25 19:23 | Outpatient (ROUT) | payer MEDICARE, SELFPAY ==
[2021-01-25 19:48] LABS: Add Manual Diff / Slide Review NO; Basophils Absolute Auto 100 /uL (0-100); Basophils Percent Auto 0.7 % (0-2); Eosinophils Absolute Auto 200 /uL (0-450); Eosinophils Percent Auto 2.7 % (2-4); Hematocrit 40.8 % (41-53); Hemoglobin 13.5 g/dL (13.5-17.5); Lymphocytes Absolute Auto 1400 /uL (1100-4500); Mean Corpuscular Hemoglobin 27.7 PG (26-34); Mean Corpuscular Volume 83.8 fL (80-100); Monocytes Absolute Auto 800 /uL (0-900); Monocytes Percent Auto 10.8 % (3-14); Neutrophils Absolute Auto 5300 /uL (1500-7000); Neutrophils Percent Auto 67.8 % (50-75); Platelet Count 206 X10^3/uL (150-400); Red Blood Cell Count 4.87 X10^6/uL (4.5-5.9); Red Cell Distribution Width 15.2 % (11.6-14.8); White Blood Cell Count 7.8 X10^3/uL (4.5-11.0)
[2021-01-25 19:58] LABS: BUN Creatinine Ratio 12.9 (6-22); Blood Urea Nitrogen 20 mg/dL (9-20); Calcium 10.6 mg/dL (8.4-10.2); Carbon Dioxide 21 mmol/L (22-32); Chloride 107 mmol/L (98-107); Estimated Glomerular Filt Rate 43.2 mL/min (>60); Glucose 102 mg/dL (80-110); HEMOLYSIS < 15 (0-50); Potassium 4.6 mmol/L (3.4-5.1); Sodium 142 mmol/L (137-145)
[2021-01-25 20:06] LABS: Hemoglobin A1C% w Est Avg Glu 7.2 % (4.0-6.0)
== END ==
PROVIDERS: PCP Internal Medicine; Visit Provider Internal Medicine
DX: I10 Essential (primary) hypertension (principal)
CPT/HCPCS: 80048; 83036; 85025